=== PATIENT | female | born 1995 | race Caucasian/White ===

== ENCOUNTER 2018-12-01 21:48 | Inpatient (IN) | payer MEDICAID ==
[2018-12-01] MEDS ORDERED: METHYLERGONOVINE 0.2 MG INJ IM (22:30)
[2018-12-01] MEDS ORDERED: IBUPROFEN 600 MG TAB PO (22:30)
[2018-12-01] MEDS ORDERED: OXYTOCIN 30 UNITS/LR 500 ML IV (22:30)
[2018-12-01] MEDS ORDERED: BUTORPHANOL 2 MG INJ IV ×2 (22:30)
[2018-12-01] MEDS ORDERED: MISOPROSTOL 200 MCG TAB PR (22:30)
[2018-12-01] MEDS ORDERED: CARBOPROST 250 MCG INJ IM (22:30)
[2018-12-01] MEDS: LACTATED RINGER'S 1,000 ML IV (23:15)
[2018-12-01] MEDS: BETAMET NA PHOS/AC(6 MG/ML) 2 ML INJ SYG IM (23:16)
[2018-12-01 23:45] LABS: ADD MAN DIFF? NO
[2018-12-01 23:48] LABS: WHITE BLOOD COUNT 15.8 10^3/ul (4.8-10.8)
[2018-12-01 23:48] LABS: BASOPHIL # 0.1 10^3/ul (0.0-0.1); BASOPHILS % 0.3 % (0.0-2.0); EOSINOPHILS # 0.1 10^3/ul (0.0-0.5); EOSINOPHILS % 0.6 % (0.0-7.0); HEMATOCRIT 34.3 % (37.0-47.0); HEMOGLOBIN 11.8 g/dl (12.0-16.0); LYMPHOCYTES # 2.8 10^3/ul (0.8-2.9); LYMPHOCYTES % 17.6 % (15.0-51.0); MEAN CORPUSCULAR HGB CONC 34.4 g/dl (32.0-37.0); MEAN PLATELET VOLUME 10.6 fl (7.4-10.4); MONOCYTES % 6.2 % (0.0-11.0); NEUTROPHIL # 11.7 10^3/ul (1.6-7.5); NEUTROPHILS % 74.5 % (39.0-77.0); PLATELET COUNT 260 10^3/UL (140-415); RED BLOOD COUNT 3.81 10^6/ul (4.20-5.40); RED CELL DISTRIBUTION WIDTH 13.6 % (11.5-14.5)
[2018-12-02 00:06] LABS: ALANINE AMINOTRANSFERASE 14 IU/L (13-69); ALBUMIN 3.7 g/dl (3.3-4.9); ALBUMIN/GLOBULIN RATIO 1.02; ALKALINE PHOSPHATASE 209 IU/L (42-121); ANION GAP 9 (5-13); ASPARTATE AMINO TRANSFERASE 22 IU/L (15-46); BILIRUBIN,INDIRECT 0.6 mg/dl (0-1.1); BILIRUBIN,TOTAL 0.6 mg/dl (0.2-1.3); BLOOD UREA NITROGEN 6 mg/dl (7-20); CALCIUM 9.3 mg/dl (8.4-10.2); CARBON DIOXIDE 22 mmol/L (21-31); CHLORIDE 105 mmol/L (97-110); CREATININE 0.51 mg/dl (0.44-1.00); Estimated GFR > 60 mL/min (>60); GLUCOSE 85 mg/dl (70-220); POTASSIUM 3.7 mmol/L (3.5-5.1); SODIUM 136 mmol/L (135-144); TOTAL PROTEIN 7.3 g/dl (6.1-8.1)
[2018-12-02 00:08] LABS: INR 0.89; PROTIME 12.1 Sec (11.9-14.9); PT RATIO 0.9
[2018-12-02 00:09] LABS: PARTIAL THROMBOPLASTIN TIME 28.8 Sec (23.0-35.0)
[2018-12-02 00:37] LABS: HEPATITIS B SURFACE ANTIGEN NEGATIVE (NEGATIVE)
[2018-12-02] MEDS: OXYTOCIN 30 UNITS/LR 500 ML IV ×3 (05:55→12:21)
[2018-12-02] MEDS: LACTATED RINGER'S 1,000 ML IV (06:18)
[2018-12-02] MEDS: LIDOCAINE 1% (MPF) 30 ML INJ INJ (06:23)
[2018-12-02] MEDS ORDERED: DIBUCAINE 1% 30 GM OINT TOP (11:00)
[2018-12-02] MEDS ORDERED: OXYTOCIN 30 UNITS/LR 500 ML IV (11:00)
[2018-12-02] MEDS ORDERED: NACL 0.9% 3 ML SYG IV (11:00)
[2018-12-02] MEDS ORDERED: MISOPROSTOL 200 MCG TAB PR (11:00)
[2018-12-02] MEDS ORDERED: METHYLERGONOVINE 0.2 MG INJ IM (11:00)
[2018-12-02] MEDS ORDERED: CARBOPROST 250 MCG INJ IM (11:00)
[2018-12-02] MEDS ORDERED: ACETAMINOPHEN 325 MG TAB PO (11:00)
[2018-12-02] MEDS: IBUPROFEN 800 MG TAB PO ×3 (12:10→23:50)
[2018-12-02 20:46] LABS: RAPID PLASMA REAGIN NONREACTIVE (NR)
[2018-12-03] MEDS: IBUPROFEN 800 MG TAB PO ×4 (05:44→23:57)
[2018-12-03 09:44] LABS: ADD MAN DIFF? NO
[2018-12-03 09:56] LABS: BASOPHIL # 0.1 10^3/ul (0.0-0.1); BASOPHILS % 0.4 % (0.0-2.0); EOSINOPHILS # 0.1 10^3/ul (0.0-0.5); EOSINOPHILS % 0.6 % (0.0-7.0); HEMOGLOBIN 11.5 g/dl (12.0-16.0); LYMPHOCYTES # 3.3 10^3/ul (0.8-2.9); LYMPHOCYTES % 21.9 % (15.0-51.0); MEAN CORPUSCULAR HEMOGLOBIN 30.3 pg (29.0-33.0); MEAN CORPUSCULAR HGB CONC 32.9 g/dl (32.0-37.0); MEAN CORPUSCULAR VOLUME 92.1 fl (82.0-101.0); MEAN PLATELET VOLUME 10.8 fl (7.4-10.4); MONOCYTE # 1.2 10^3/ul (0.3-0.9); MONOCYTES % 7.8 % (0.0-11.0); NEUTROPHIL # 10.2 10^3/ul (1.6-7.5); NEUTROPHILS % 67.8 % (39.0-77.0); PLATELET COUNT 265 10^3/UL (140-415)
[2018-12-03] MEDS: LANOLIN HPA 1 PKT TOP (20:24)
[2018-12-03] MEDS: BENZOCAINE 20% 56 ML SPRAY TOP (20:25)
[2018-12-03] MEDS: WITCH HAZEL/GLYCERIN PAD PR (20:25)
[2018-12-04] MEDS: IBUPROFEN 800 MG TAB PO (05:36)
[2018-12-04] MEDS: VARICELLA VACCINE LIVE/PF 1,350 UNIT/0.5 ML ML SC* (09:02)
[2018-12-04] MEDS: MEASLES,MUMPS,RUBELLA VACCINE INJ SC* (09:02)
[2018-12-04] MEDS: DIPHTH/TET/ACEL PERTUSS (ADULT) 0.5 ML VIAL IM* (09:46)
== END 2018-12-04 11:50 | disposition home or self-care (01) | DRG 807 ==
LOC: OBT 21:48 → PP1 12-02 07:54 → L-D 21:48 → OBT 22:17 → L-D 22:24
PROC: 10E0XZZ Delivery of Products of Conception, External Approach (ICD-10-PCS; principal; 2018-12-02)
PROC: 0HQ9XZZ Repair Perineum Skin, External Approach (ICD-10-PCS; 2018-12-02)
DX: O60.14X0 Preterm labor third trimester with preterm delivery third trimester, not applicable or unspecified (principal); Z37.0 Single live birth; O70.0 First degree perineal laceration during delivery; Z3A.35 35 weeks gestation of pregnancy; Z23 Encounter for immunization
CPT/HCPCS: 76815; 80053; 85025; 85610; 85730; 86592; 86850; 86900; 86901; 87340; 88307; 90715; 90716; 99464